=== PATIENT | male | born 1970 | race Native Hawaiian/Other Pacific Islander ===

== ENCOUNTER 2017-01-08 17:58 | Emergency (ER) | payer OTHER ==
[~2017-01-08] VITALS: Ht 172.7 cm; Wt 88.5 kg
[2017-01-08 18:30] VITALS: BP 116/62; TEMP 98.5
== END 2017-01-08 20:28 | disposition left against medical advice (07) ==
LOC: ED 17:58
DX: M54.9 Dorsalgia, unspecified (principal)
CPT/HCPCS: 99281

== ENCOUNTER 2017-01-09 22:16 | Outpatient (CLI) | payer OTHER | END 2017-01-09 22:20 | disposition short-term general hospital (02) | LOC: AMB 22:16 | DX: M54.5 Low back pain (principal) | CPT/HCPCS: A0425; A0427 ==

== ENCOUNTER 2017-01-09 22:20 | Emergency (ER) | payer OTHER ==
[~2017-01-09] VITALS: Ht 172.7 cm; Wt 86.2 kg
[2017-01-09 23:31] VITALS: BP 138/82; TEMP 98.2
== END 2017-01-09 23:33 | disposition home or self-care (01) ==
LOC: ED 22:20
DX: M54.5 Low back pain (principal)
CPT/HCPCS: 96372; 99283; J2360

== ENCOUNTER 2017-01-13 14:07 | Outpatient (CLI) | payer OTHER | END 2017-01-13 14:24 | disposition short-term general hospital (02) | LOC: AMB 14:07 | DX: M54.5 Low back pain (principal) | CPT/HCPCS: A0425; A0429 ==

== ENCOUNTER 2017-01-20 21:33 | Emergency (ER) | payer OTHER ==
[~2017-01-20] VITALS: Ht 175.3 cm; Wt 85.3 kg
[2017-01-20 21:54] VITALS: BP 130/71; TEMP 98.5
== END 2017-01-21 00:51 | disposition left against medical advice (07) ==
LOC: ED 21:33
DX: Q65.89 Other specified congenital deformities of hip (principal); M51.36 Other intervertebral disc degeneration, lumbar region
CPT/HCPCS: 99283

== ENCOUNTER 2017-02-03 17:12 | Emergency (ER) | payer OTHER ==
[~2017-02-03] VITALS: Ht 175.3 cm; Wt 83.9 kg
[2017-02-03 17:15] VITALS: TEMP 98.3
[2017-02-03 18:52] LABS: PLATELET COUNT 338 K/uL (142-355)
[2017-02-03 19:00] LABS: POTASSIUM 4.6 mmol/L (3.6-5.2); SODIUM 134 mmol/L (136-145)
[2017-02-03 19:42] VITALS: BP 138/47
== END 2017-02-03 19:43 | disposition home or self-care (01) ==
LOC: ED 17:12
DX: K52.89 Other specified noninfective gastroenteritis and colitis (principal)
CPT/HCPCS: 36415; 80053; 85027; 96365; 96374; 99284; J1885